=== PATIENT | female | born 1970 | race Caucasian/White ===

== ENCOUNTER → 2017-01-09 | Outpatient (CLI) | payer BC ==
--- NOTE | 2017-01-12 09:16 | MM ---
Reason for exam: screening (asymptomatic). Last mammogram was performed 1 year ago. History: Patient had first child at age 37. Physical Findings: A clinical breast exam by your physician is recommended on an annual basis and results should be correlated with mammographic findings. MG 3D Screening Mammo W/Cad Bilateral CC and MLO view(s) were taken. Prior study comparison: January 25, 2016, left breast MG 3d diag mammo w/cad LT. July 20, 2015, left breast MG work up mamm w CAD LT. The breast tissue is heterogeneously dense. This may lower the sensitivity of mammography. Benign calcifications. There is no discrete abnormality. No significant changes when compared with prior studies. ASSESSMENT: Benign, BI-RAD 2 RECOMMENDATION: Routine screening mammogram of both breasts in 1 year.
== END | disposition home or self-care (01) ==
LOC: RADMAMWWP 09:22
PROVIDERS: ATTEND Obstetrics & Gynecology
DX: Z12.31 Encounter for screening mammogram for malignant neoplasm of breast (principal)
CPT/HCPCS: 77063; G0202

== ENCOUNTER → 2018-03-11 | Outpatient (CLI) | payer BC ==
--- NOTE | 2018-03-12 13:37 | MM ---
Reason for exam: screening (asymptomatic). Last mammogram was performed 1 year and 2 months ago. History: Patient had first child at age 37. Physical Findings: A clinical breast exam by your physician is recommended on an annual basis and results should be correlated with mammographic findings. MG 3D Screening Mammo W/Cad Bilateral CC and MLO view(s) were taken. Prior study comparison: January 09, 2017, bilateral MG 3d screening mammo w/cad. January 25, 2016, left breast MG 3d diag mammo w/cad LT. The breast tissue is heterogeneously dense. This may lower the sensitivity of mammography. Finding: There are typically benign diffuse/scattered calcifications in both breasts. No suspicious abnormality on the right breast. Although the left central upper middle depth architectural distortion appear similar to prior, diagnostic exam is recommended given distortion with no prior intervention. ASSESSMENT: Incomplete: need additional imaging evaluation, BI-RAD 0 RECOMMENDATION: Special view mammogram of the left breast. If lesion persists on supplemental views, image directed ultrasound is recommended. [facility] will attempt to contact patient to return for supplemental views and ultrasound if indicated.
== END | disposition home or self-care (01) ==
LOC: RADMAMWWP 15:28
PROVIDERS: ATTEND Obstetrics & Gynecology
DX: Z12.31 Encounter for screening mammogram for malignant neoplasm of breast (principal)
CPT/HCPCS: 77063; 77067

== ENCOUNTER → 2018-03-23 | Outpatient (CLI) | payer BC ==
--- NOTE | 2018-03-24 10:45 | MM ---
Reason for exam: additional evaluation requested from abnormal screening. Last mammogram was performed less than 1 month ago. History: Patient had first child at age 37. Physical Findings: Nurse did not find any significant physical abnormalities on exam. MG 3D Work Up W/Cad LT CC, spot compression MLO, and LM view(s) were taken of the left breast. Prior study comparison: March 11, 2018, bilateral MG 3d screening mammo w/cad. January 09, 2017, bilateral MG 3d screening mammo w/cad. There is a focal distortion best seen on 3D 11-12 o'clock left breast middle posterior position. This finding is changed when compared with previous exams. These results were verbally communicated with the patient and result sheet given to the patient on 03/23/18. ASSESSMENT: Incomplete: need additional imaging evaluation, BI-RAD 0 RECOMMENDATION: Ultrasound of the left breast. (11 o'clock middle posterior position)
--- NOTE | 2018-03-24 10:47 | USB ---
Reason for exam: additional evaluation requested from abnormal screening. History: Patient had first child at age 37. US Breast Workup Limited LT Left limited breast ultrasound including focal area of concern, retroareolar and axilla demonstrates a 0.4 x 0.3 x 0.4cm cystic lesion at 10 o'clock, a 0.7 x 0.3 x 0.6cm cystic lesion at 10 o'clock, a 1.3 x 0.9 x 0.6cm hypoechoic with shadowing, taller than wide lesion at 12 o'clock and duct ectasia at the posterior nipple. These results were verbally communicated with the patient and result sheet given to the patient on 03/23/18. ASSESSMENT: Highly suggestive of malignancy, BI-RAD 5 RECOMMENDATION: Surgical consultation and ultrasound core biopsy of the left breast. Called Dr. Jamil with mammographic findings and has scheduled an appointment for the patient for 04/28/18 at 4:[address] Reid. Biopsy scheduled for 04/02/18 at 11:30. PRELIMINARY REPORT CALLED AND FAXED TO DR. REID ON 03/24/18.
== END | disposition home or self-care (01) ==
LOC: RADMAMWWP 13:36
PROVIDERS: ATTEND Obstetrics & Gynecology
DX: R92.8 Other abnormal and inconclusive findings on diagnostic imaging of breast (principal)
CPT/HCPCS: 77061; 77065

== ENCOUNTER → 2018-04-02 | Day surgery (SDC) | payer BC ==
[2018-04-02 11:11] VITALS: RESP 16; BMI 36.8
--- NOTE | 2018-04-02 12:35 | USB ---
EXAMINATION TYPE: US biopsy breast VAD LT, MG diagnostic mammo LT wo CAD DATE OF EXAM: 04/02/2018 CLINICAL HISTORY: R92.8 ABN MAMMO. Abnormal ultrasound TECHNIQUE: Ultrasound guided core biopsy of left breast with clip placement and follow-up diagnostic two-view mammogram. COMPARISON: Prior left breast ultrasound and mammogram March 23, 2018 FINDINGS: The procedure of ultrasound guided core biopsy was explained to the patient. Benefits, alternatives, and risks were discussed. An informed consent was then obtained. The patient was placed in supine positioning for imaging and for the procedure. Preprocedure ultrasound redemonstrates vague hypoechoic shadowing area 12:00 position left breast. The overlying skin was prepped and draped in usual sterile fashion. Lidocaine buffered with bicarbonate was used as anesthetic into the skin and subcutaneous tissue. Lidocaine with epinephrine is used as anesthetic into the deeper tissue at area of concern in the left breast. A malena was made with surgical scalpel. Under ultrasound guidance, a 12-gauge vacuum assisted biopsy gun device was used to obtain 3 core samples. Following this, a biopsy clip was left in lesion. The patient tolerated the procedure well without any immediate complication. The patient was kept in the radiology department for short stay after the procedure and then discharged home in stable condition. Postprocedure mammogram shows successful deployment of clip without obvious corresponding mammogram abnormality. Dense tissue is noted at this level similar prior. IMPRESSION: Successful, uncomplicated ultrasound guided core biopsy of area of concern in the left breast, full pathology results to follow. Intermediate index of suspicion noted at time of procedure. Pathology Results: Benign BREAST, LEFT, ULTRASOUND GUIDED CORE BIOPSY: Fibrocystic changes including cysts , fibrosis, and sclerosing adenosis. Recommendation Follow up mammogram and ultrasound of the left breast in 6 months. IDALMIS
[2018-04-02 12:39] VITALS: BP 127/77; PULSE 76; TEMP 98.1
== END | disposition home or self-care (01) ==
LOC: RADUSWWP 10:24
PROVIDERS: ATTEND Surgery
DX: N60.22 Fibroadenosis of left breast (principal); N60.32 Fibrosclerosis of left breast; N60.02 Solitary cyst of left breast
CPT/HCPCS: 88305; 77065; 19083; A4648; J2001

== ENCOUNTER → 2018-10-04 | Outpatient (CLI) | payer BC ==
--- NOTE | 2018-10-04 12:17 | MM ---
Reason for exam: follow-up at short interval from prior study. Last mammogram was performed 6 months ago. History: Patient had first child at age 37. Benign US biopsy breast VAD LT of the left breast, April 02, 2018. Physical Findings: Nurse did not find any significant physical abnormalities on exam. MG 3D Diag Mammo W/Cad LT CC, MLO, spot compression MLO, spot compression CC, and ML with magnification view(s) were taken of the left breast. Prior study comparison: April 02, 2018, left breast MG diagnostic mammo LT wo CAD. March 23, 2018, left breast MG 3d work up w/cad LT. The breast tissue is heterogeneously dense. This may lower the sensitivity of mammography. 12 o'clock biopsy marker seen. Distortion definitively on CC 45/80, equivocally in MLO 56/104. Suspicious with no sonographic correlate. These results were verbally communicated with the patient and result sheet given to the patient on 10/04/18. ASSESSMENT: Suspicious, BI-RAD 4 RECOMMENDATION: Breast MRI and ultrasound core biopsy of the left breast. MRI prebiopsy is recommended to evaluate 12 o'clock and CC distortion.
--- NOTE | 2018-10-04 12:19 | USB ---
Reason for exam: follow-up at short interval from prior study. History: Patient had first child at age 37. Benign US biopsy breast VAD LT of the left breast, April 02, 2018. US Breast LT Left complete breast ultrasound includes all four quadrants, the retroareolar region and axilla. Finding demonstrates duct ectasia at 4 o'clock, a 0.5 x 0.6 x 0.4cm oval, cystic lesion at 10 o'clock and 12 o'clock shadowing, taller than wide remains, re-biopsy recommended. These results were verbally communicated with the patient and result sheet given to the patient on 10/04/18. ASSESSMENT: Suspicious, BI-RAD 4 RECOMMENDATION: Ultrasound core biopsy of the left breast. MRI prebiopsy is recommended to evaluate 12 o'clock and CC distortion.
== END | disposition home or self-care (01) ==
LOC: RADMAMWWP 09:19
PROVIDERS: ATTEND Surgery
DX: R92.8 Other abnormal and inconclusive findings on diagnostic imaging of breast (principal)
CPT/HCPCS: 77061; 77065

== ENCOUNTER → 2018-10-22 | Outpatient (CLI) | payer BC ==
--- NOTE | 2018-10-25 07:44 | BMR ---
EXAMINATION TYPE: MR breast BILAT wo/w con DATE OF EXAM: 10/22/2018 COMPARISON: 3-D bilateral breast mammogram March 11, 2018 BI-RADS 0. Left breast diagnostic mammogram M 2017 BI-RADS 0. Diagnostic left breast ultrasound March 23, 2018 BI-RADS 5 with follow-up benign biopsy. Diagnostic left breast mammogram October 04, 2018 BI-RADS 4. Diagnostic left breast ultrasou nd October 04, 2018 BI-RADS 4. HISTORY: Abnormal mammogram, history of benign left breast biopsy April 02, 2018. CONTRAST: Multiplanar, multisequence images of the breasts were acquired utilizing 9 mL intravenous Gadavist ga dolinium contrast. TECHNIQUE: A series of fat and water weighted images in the long and short axis views of both breasts are obtained in conjunction with dynamic contrast MRI with subtraction technique. Three-dimensional and additional postprocessing imaging is created on independent workstation and reviewed during offi cial interpretation of this study. FINDINGS: Heterogeneously dense fibroglandular tissue is redemonstrated bilaterally. T2-weighted imag es show prominent dilated ducts subareolar region of the left breast. There are scattered tiny puncta te thin-walled cysts throughout both breasts. Delayed dynamic postcontrast images show no suspicious intramammary adenopathy. There is marked bilateral background enhancement making evaluation slightly suboptimal. With regards to the right breast some scattered foci of enhancement in glandular tissue is present co uld reflect adenomyosis. No pathologic enhancement is identified. No suspicious skin thickening is se en. There are benign-appearing right axillary lymph nodes. The chest wall is intact. With regards to the left breast there is artifact from biopsy clip towards 12:00 position. Subtle dis tortion just posterior to this corresponds to mammograms without obvious suspicious enhancing spicula roque mass. Foci of enhancement in the glandular tissue similar to opposite right breast are noted favo ring adenosis. No suspicious skin thickening is seen. The chest wall is intact. There are benign-appe aring left axillary lymph node seen similar to opposite right breast. IMPRESSION: No MRI evidence for invasive malignancy in either breast. BI-RADS 2 benign findings right breast BI-RADS 2 benign findings left breast Recommendation: Repeat ultrasound guided core biopsy left breast due to mammogram and ultrasound abno rmality to ensure no malignancy is present.
== END | disposition home or self-care (01) ==
LOC: RADMRIMAIN 12:25
PROVIDERS: ATTEND Surgery
DX: R92.8 Other abnormal and inconclusive findings on diagnostic imaging of breast (principal)
CPT/HCPCS: 77059; 0159T; A9585

== ENCOUNTER → 2018-11-09 | Day surgery (SDC) | payer BC ==
[2018-11-09 11:44] VITALS: RESP 16; BMI 83.2
[2018-11-09 13:51] VITALS: BP 123/77; PULSE 84; TEMP 98.2
--- NOTE | 2018-11-09 16:14 | USB ---
EXAMINATION TYPE: US biopsy breast VAD LT, Postbiopsy MG diagnostic mammo LT wo CAD DATE OF EXAM: 11/09/2018 CLINICAL HISTORY: 48-year-old female R92.8 Abnormal Mammogram. Patient with prior benign left breast biopsy with persistent suspicious ultrasound appearance. Recent benign breast MRI. Referred for repea t biopsy as a precautionary measure of the ultrasound finding. TECHNIQUE: Ultrasound guided core biopsy of the 12:00 left breast. COMPARISON: 10/04/2018 and MRI 10/22/2018 FINDINGS: The procedure of ultrasound guided core biopsy was explained to the patient. Benefits, alt ernatives, and risks were discussed. An informed consent was then obtained. The patient has very angular and shadowing breast tissue. 12:00 biopsy clip is subtly apparent. An ad jacent area of more pronounced angular shadowing in the 12:00 region is targeted for biopsy. The patient was placed in supine positioning for imaging and for the procedure. The overlying skin w as prepped and draped in usual sterile fashion. Lidocaine buffered with bicarbonate was used as anes thetic into the skin and subcutaneous tissue up to area of concern in the 12:00 left breast. Under ultrasound guidance, a 13-gauge vacuum-assisted mammotome Elite biopsy gun device was used to o btain 8 core samples. Following this, a coil clip was left in lesion. The patient tolerated the procedure well without any immediate complication. The patient was kept in the radiology department for short stay after the procedure and then discharged home in stable condi tion. Post procedure mammogram shows the 12:00 coil and adjacent ribbon clips. Ribbon clip from biopsy 6 mo nths ago. IMPRESSION: Successful, uncomplicated ultrasound guided rebiopsy of area of concern in the left breast, full path ology results to follow. Note that pathology results from 6 months ago were benign and MRI findings o n 10/22/2018 were also benign. Suspect that this represents angular, shadowing breast tissue. Repeat biopsy is performed today as a precautionary measure given the ultrasound appearance.
== END | disposition home or self-care (01) ==
LOC: RADUSWWP 11:24
PROVIDERS: ATTEND Surgery
DX: N60.32 Fibrosclerosis of left breast (principal); N60.22 Fibroadenosis of left breast; N60.02 Solitary cyst of left breast
CPT/HCPCS: 88305; 77065; 19083; A4648; J2001

== ENCOUNTER → 2019-05-25 | Outpatient (CLI) | payer BC ==
--- NOTE | 2019-05-25 09:11 | MM ---
Reason for exam: follow-up at short interval from prior study. Last mammogram was performed 7 months ago. History: Patient had first child at age 37. Benign US biopsy breast VAD LT of the left breast, November 09, 2018. Benign US biopsy breast VAD LT of the left breast, April 02, 2018. Physical Findings: Nurse did not find any significant physical abnormalities on exam. MG 3D Diag Mammo W/Cad LT CC, MLO, LM, CC with magnification, and LM with magnification view(s) were taken of the left breast. Prior study comparison: November 09, 2018, left breast MG diagnostic mammo LT wo CAD. October 04, 2018, left breast MG 3d diag mammo w/cad LT. The breast tissue is heterogeneously dense. This may lower the sensitivity of mammography. Finding: There are typically benign round, linear, regional and diffuse/scattered calcifications in the left breast. Previous mammotome biopsy in the left breast x 2. There is no discrete abnormality. These results were verbally communicated with the patient and result sheet given to the patient on 05/25/19. ASSESSMENT: Benign, BI-RAD 2 RECOMMENDATION: Follow-up diagnostic mammogram of both breasts in 5 months. Back on schedule for November 2019.
== END | disposition home or self-care (01) ==
LOC: RADMAMWWP 07:41
PROVIDERS: ATTEND Surgery
DX: R92.8 Other abnormal and inconclusive findings on diagnostic imaging of breast (principal)
CPT/HCPCS: 77061; 77065

== ENCOUNTER → 2019-09-22 | Outpatient (CLI) | payer BC ==
--- NOTE | 2019-09-22 21:16 | CONS ---
CONSULTATION DATE OF SERVICE: 09/16/2019 49-year-old lady who has been evaluated in [facility] for possible obstructive sleep apnea-hypopnea syndrome and for significant excessive daytime sleepiness. HISTORY OF PRESENT ILLNESS/SLEEP-WAKE EVALUATION: SLEEP SCHEDULE: Patient's usual sleep schedule on weekdays from 10:30 to 11 p.m. until 6 a.m., on weekends from around 9 or 10 pm until 10 - 11 am. FALLING ASLEEP: Usually no problems with falling asleep. No TV in bedroom. DURING SLEEP: Sleeps usually of the side position or in different positions. According to her , she snores. She grinding her teeth. Using oral appliances to prevent grinding. She sometimes wake up from sleep with episodes of gasping for air totally. She wakes up from sleep up to 3 times with up to 2 episodes of nocturia. DURING THE DAY/SLEEP WAKE EVALUATION: In the morning she wakes up tired, has difficulties paying attention, falling asleep during the day, has problems with memory, concentration, episodes of anxiety. [place] Sleepiness Scale increased to 14. PAST MEDICAL HISTORY: Positive for hypertension, anxiety, sinus problems. PAST SURGICAL HISTORY: Appendectomy, surgery on the sinuses. MEDICATIONS: Lexapro, Singulair, hydrochlorothiazide. FAMILY HISTORY: Hypertension, heart problems, hyperlipidemia and arthritis. REVIEW OF SYSTEMS: Awakenings from sleep. Sleepiness during the day. Patient takes one nap around 1 or 3 pm, sometimes usually feels refreshed after that. No vivid dreams during nap. No hypnagogic hallucinations, sleep paralysis or cataplexy. PHYSICAL EXAM: lady without distress. BP 146/66, HR 89, RR 16 height 5 feet 5 inches 3/4, weight 205 pounds. Body mass index 39.1, temperature 97.9. Oxygen saturation at room air 97% oropharynx extremely low soft palate, Mallampati 3-4 restriction of nasal breathing. Neck: 14-3/4 inches in circumference. NECK: Supple, no JVD. Thyroid is not palpable. LUNGS: Clear to percussion and to auscultation. Good air exchange. No wheezing or rhonchi. HEART: S1, S2 regular. No murmurs, gallops, or rubs. ABDOMEN: Obese. Soft and nontender. Bowel sounds are present. No organomegaly appreciated. EXTREMITIES: No clubbing or cyanosis. INDOOR PLANT TECHNICIAN: Awake, alert, and oriented X3. Cranial nerves 2 to 7 intact. There is no fasciculation or atrophy. noted. No focal deficits observed. IMPRESSION: 1. Snoring, awakenings from sleep gasping for air, low position of soft palate, restriction of nasal breathing; obstructive sleep apnea-hypopnea syndrome. 2. Excessive daytime sleepiness. [place] Sleepiness Scale increased to 14-15. The patient takes naps. Differential diagnosis should include hypersomnia if evaluation for sleep apnea will be negative. 3. Hypertension. 4. Anxiety. 5. History of sinus problem, restriction of nasal breathing. 6. Status post sinus surgery. 7. Status post appendectomy. PLAN: 1. Home sleep apnea test for evaluation of patient's breathing during sleep. 2. CPAP/BiPAP titration if sleep study confirms obstructive sleep apnea-hypopnea syndrome. 3. Preferable position during sleep on the side. 4. No driving if patient feels any sleepiness. 5. I will see patient for follow up visit to explain results of testing and following plan. 6. Multiple sleep latency test if the sleep study will be negative for obstructive sleep apnea-hypopnea syndrome. Thank you very much for referring this patient for consultation. Sincerely, Travis Vasquez MD, PhD, FAASM Diplomat of [employer] [employer] [employer] H[employer] Administrative Assistant of [facility] [place] JACKLYN / ANA: [id number] /
== END | disposition home or self-care (01) ==
LOC: SLEEP 15:07
PROVIDERS: ATTEND Internal Medicine
DX: G47.33 Obstructive sleep apnea (adult) (pediatric) (principal); I10 Essential (primary) hypertension; F41.9 Anxiety disorder, unspecified; Z87.39 Personal history of other diseases of the musculoskeletal system and connective tissue; Z90.49 Acquired absence of other specified parts of digestive tract; Z98.890 Other specified postprocedural states; Z79.899 Other long term (current) drug therapy
CPT/HCPCS: 99211

== ENCOUNTER → 2019-11-28 | Outpatient (CLI) | payer BC ==
--- NOTE | 2019-11-28 12:14 | MM ---
Reason for exam: follow-up at short interval from prior study. Last mammogram was performed 6 months ago. History: Patient had first child at age 37. Benign US biopsy breast VAD LT of the left breast, November 09, 2018. Benign US biopsy breast VAD LT of the left breast, April 02, 2018. Took hormonal contraceptives for 5 years. Physical Findings: Nurse did not find any significant physical abnormalities on exam. MG 3D Diag Mammo W/Cad JOSE ELIAS Bilateral CC and MLO view(s) were taken. ML, spot compression CC, and spot compression MLO view(s) were taken of the left breast. Prior study comparison: May 25, 2019, left breast MG 3d diag mammo w/cad LT. November 09, 2018, left breast MG diagnostic mammo LT wo CAD. The breast tissue is heterogeneously dense. This may lower the sensitivity of mammography. Benign appearing bilateral calcifications. Left upper inner quadrant distortion is seen at middle depth, seen on prior exams and previously work up. No ultrasound of MRI correlate. On spot compression views this persists on CC 39/65 and MLO 47/80. These results were verbally communicated with the patient and result sheet given to the patient on 11/28/19. ASSESSMENT: Suspicious, BI-RAD 4 RECOMMENDATION: Stereotactic core biopsy of the left breast. (3D) Called Dr. Reid's office with mammographic findings. PRELIMINARY REPORT CALLED AND FAXED TO DR. REID ON 11/28/19.
== END | disposition home or self-care (01) ==
LOC: LAB 10:55
PROVIDERS: ATTEND Surgery
DX: R92.8 Other abnormal and inconclusive findings on diagnostic imaging of breast (principal)
CPT/HCPCS: 77062; 77066

== ENCOUNTER → 2020-06-14 | Outpatient (CLI) | payer BC ==
--- NOTE | 2020-06-14 17:22 | SFUN ---
SLEEP CENTER FOLLOW UP NOTE DATE OF SERVICE: 06/14/2020 A 50-year-old lady who has been followed in the Sleep Center for treatment of obstructive sleep apnea-hypopnea syndrome. Patient underwent home sleep apnea test and I discussed results of home sleep apnea test with the patient in details. Subsequently, the patient received her AutoPAP unit and today is her first visit after she started to use her AutoPAP. Patient is able to use show her AutoPAP most of nights and she feels better while she is using her CPAP equipment. She sleeps better and she feels more energy in the morning. Before treatment, her [place] Sleepiness Scale was 14, today her [place] Sleepiness Scale is 10. I checked her CPAP unit, it is on automatic regimen in the range of the pressure 5-15 cm of water. Average pressure 10.6 cm of water. Usage is 18/30 nights and 14/30 nights for more than 4 hours with average usage 4.8 hours per night, Leak is 2 L/minute which is minimal. Apnea-hypopnea index reading 3.4, which is in normal range. MEDICATIONS: Lexapro, Singulair, hydrochlorothiazide. PHYSICAL EXAM: lady without distress, BP 139/84, HR 89, RR 16, weight 216.4 pounds which is 11 pounds more than during first visit. OROPHARYNX: Low position of soft palate, Mallampati 3-4. Some restriction of nasal breathing. ABDOMEN: Obese. NECK: Supple, no JVD. Thyroid is not palpable. LUNGS: Clear to percussion and to auscultation. Good air exchange. No wheezing or rhonchi. HEART: S1, S2 regular. No murmurs, gallops, or rubs. EXTREMITIES: No clubbing or cyanosis. COPIER AND PRINTER FIELD TECHNICIAN: Awake, alert, and oriented X3. Cranial nerves 2 to 7 intact. There is no fasciculation or atrophy. noted. No focal deficits observed. IMPRESSION: 1. Obstructive sleep apnea-hypopnea syndrome. The patient started to use CPAP equipment and benefitting from treatment. 2. Significant excessive daytime sleepiness before starting treatment with CPAP. [place] Sleepiness Scale improved to borderline level 10. 3. Hypertension. 4. Anxiety. 5. History of sinus problems with restriction of nasal breathing. 6. Status post sinus surgery. 7. Status post appendectomy. PLAN: 1. Patient will continue to use PAP equipment every night for the whole night. 2. Sleep hygiene with regular time in bed for at least 7-1/2 to 8 hours. 3. Precautions related to driving. No driving if feeling sleepiness. 4. I will maintain all necessary prescription for PAP supplies including mask, tube, filters. 5. Watching weight. 6. No driving if feeling sleepiness. 7. Follow-up visit in 6 months or earlier if patient has any problems. 8. I discussed necessity to use CPAP equipment every night for the whole night. The patient promised to follow recommendations. Time spent with patient 25 minutes. Thank you very much for allowing me to participate in the management of patient. Sincerely, Travis Vasquez MD, PhD, FAASM Diplomat of [employer] [place] [employer] Specialties [employer] [place] [employer] of [employer] Medicine [employer] [facility] [place] JACKLYN / ANA: [phone] /
== END | disposition home or self-care (01) ==
LOC: SLEEP 15:43
PROVIDERS: ATTEND Internal Medicine
DX: G47.33 Obstructive sleep apnea (adult) (pediatric) (principal); I10 Essential (primary) hypertension; F41.9 Anxiety disorder, unspecified; Z87.09 Personal history of other diseases of the respiratory system; Z99.89 Dependence on other enabling machines and devices; Z90.49 Acquired absence of other specified parts of digestive tract; Z98.890 Other specified postprocedural states; Z79.899 Other long term (current) drug therapy

== ENCOUNTER → 2020-09-10 | Outpatient (CLI) | payer BC | END | disposition home or self-care (01) | LOC: LABWHC1 15:45 | PROVIDERS: ATTEND Family Medicine | DX: Z20.828 Contact with and (suspected) exposure to other viral communicable diseases (principal) | CPT/HCPCS: U0003; C9803 ==

== ENCOUNTER → 2020-11-21 | Outpatient (CLI) | payer BC ==
--- NOTE | 2020-11-26 08:37 | MM ---
Reason for exam: screening (asymptomatic). Last mammogram was performed 6 months ago. History: Patient had first child at age 37. Benign stereotactic core biopsy of the left breast, December 2019. Benign US biopsy breast VAD LT of the left breast, November 09, 2018. Benign US biopsy breast VAD LT of the left breast, April 02, 2018. Took hormonal contraceptives for 5 years. Physical Findings: A clinical breast exam by your physician is recommended on an annual basis and results should be correlated with mammographic findings. MG 3D Screening Mammo W/Cad Bilateral CC and MLO view(s) were taken. Prior study comparison: May 29, 2020, left breast MG 3d diag mammo w/cad LT. November 28, 2019, bilateral MG 3d diag mammo w/cad JOSE ELIAS. The breast tissue is extremely dense which could obscure a lesion on mammography. Finding: There are stable, fine, round, diffuse/scattered calcifications in both breasts. Previous mammotome biopsy in the left breast. No significant changes in finding since May 29, 2020 and November 28, 2019. ASSESSMENT: Benign, BI-RAD 2 RECOMMENDATION: Routine screening mammogram of both breasts in 1 year.
== END | disposition home or self-care (01) ==
LOC: RADMAMWWP 10:01
PROVIDERS: ATTEND Surgery
DX: Z12.31 Encounter for screening mammogram for malignant neoplasm of breast (principal)
CPT/HCPCS: 77063; 77067

== ENCOUNTER → 2020-12-27 | Outpatient (CLI) | payer BC ==
--- NOTE | 2020-12-27 23:34 | SFUN ---
SLEEP CENTER FOLLOW UP NOTE DATE OF SERVICE: 12/27/2020 This patient is a 50-year-old lady who has been followed in Sleep Center for treatment of obstructive sleep apnea-hypopnea syndrome. The patient is continuing to use her CPAP equipment every night but still feels significantly sleepy during the day. [place] Sleepiness Scale today is 12. She looks sleepy and fell asleep in the exam room before I came to see her. I checked her CPAP unit. It is an automatic regimen with a pressure of 5 to 15, average pressure 10.2 cm of water. Usage is 30/30 nights, and 25/30 nights for more than 4 hours. Leak is 0 L/minute. Apnea-hypopnea index is 2.7, which is normal. MEDICATIONS: 1. Singulair 10 mg once a day. 2. Lexapro 20 mg once a day. 3. Hydrochlorothiazide once a day. 4. Flonase on p.r.n. basis. PHYSICAL EXAMINATION: GENERAL: A pleasant patient in no distress. VITAL SIGNS: BP 129/73, HR 92, RR 12, height 5 feet 1 inch, weight 211.2, BMI 39.8, temperature 97.4, oxygen saturation at room air 97%. HEENT: PERRLA, EOMI. Evaluation of oropharynx showed tongue protrudes midline. Low position of soft palate. Mallampati III to IV. NECK: Supple. No JVD. Thyroid is not palpable. LUNGS: Clear to percussion and to auscultation. Good air exchange. No wheezing or rhonchi. HEART: S1, S2 regular. No murmurs, gallops or rubs. ABDOMEN: Obese. EXTREMITIES: No clubbing or cyanosis. BLACK TOP RAKER: Awake, alert, and oriented X3. Cranial nerves 2 to 7 intact. There is no fasciculation or atrophy. noted. No focal deficits observed. IMPRESSION: 1. Obstructive sleep apnea-hypopnea syndrome. Patient demonstrated great compliance with treatment, benefitting from treatment. 2. The patient continues to have symptoms of excessive daytime sleepiness. [place] Sleepiness Scale increased to 12, falling asleep during the day. Differential diagnosis should include additional diagnosis of narcolepsy or hypersomnia. 3. Obesity. 4. Hypertension. 5. Anxiety. 6. History of sinus problems with restriction of nasal breathing. 7. Status post sinus surgery. 8. Status post appendectomy. PLAN: 1. Night on the CPAP with following multiple sleep latency test for objective evaluation of patient's symptoms of excessive daytime sleepiness and to check for any sleep-onset REM periods. 2. Continue to use CPAP equipment every night for the whole night. 3. Losing weight. 4. Sleep hygiene with regular time in bed for 8 hours. 5. No driving if feeling any sleepiness. 6. Follow-up visit after MSLT to discuss results and plan of the treatment. Thank you very much for allowing me to participate in the management of your patient. Sincerely, Travis Vasquez MD, PhD, FAASM Diplomat of [employer] Software Engineer Developer of [facility] [place] MMODL / ANGELN: [id number] /
== END | disposition home or self-care (01) ==
LOC: SLEEP 15:08
PROVIDERS: ATTEND Internal Medicine
DX: G47.33 Obstructive sleep apnea (adult) (pediatric) (principal); E66.9 Obesity, unspecified; I10 Essential (primary) hypertension; F41.9 Anxiety disorder, unspecified; Z87.09 Personal history of other diseases of the respiratory system; Z98.890 Other specified postprocedural states; Z99.89 Dependence on other enabling machines and devices

== ENCOUNTER → 2021-03-13 | Outpatient (CLI) | payer BC ==
--- NOTE | 2021-03-13 23:00 | SFUN ---
SLEEP CENTER FOLLOW UP NOTE DATE OF SERVICE: 03/13/2021 51-year-old lady has been followed in Sleep Center for treatment of obstructive sleep apnea-hypopnea syndrome and sleepiness. One month ago, she said test with CPAP with the following multiple sleep latency test for objective evaluation to sleepiness during the day. During titration, her respiration was on full control. On the following day on 5 naps, patient fell asleep on all naps. Mean sleep latency was 14.9 minutes, which is in normal range. No sleep onset REM periods have been documented, which is against idiopathic hypersomnia and narcolepsy. At the same time, patient continues to use her CPAP equipment every night but still feels sleepy during the day. Continue to take naps. [place] Sleepiness Scale today is 10. I discussed results of sleep studies with patient in detail. I checked her CPAP unit. Range of the pressure 5-15 cm of water. Average pressure is 10.7 cm of water, usage 26/30 nights and 20/30 nights for more than 4 hours with average usage 5.1 hours per night. Leak 0 L/minute. Apnea-hypopnea index 2.5. MEDICATIONS: Singulair 10 mg once a day. Lexapro 20 mg once a day. Hydrochlorothiazide once a day. Flonase on p.r.n. basis. BMI is 39.8. PHYSICAL EXAMINATION: GENERAL: Patient in no distress. BP 159/84, HR 88, RR 16, height 5 feet 1 inch, weight 210.2, temperature 97.6, oxygen saturation at room air 96%. Oropharynx extremely low position of soft palate. Mallampati IV. NECK: Supple, no JVD. Thyroid is not palpable. LUNGS: Clear to percussion and to auscultation. Good air exchange. No wheezing or rhonchi. HEART: S1, S2 regular. No murmurs, gallops, or rubs. ABDOMEN: Obese. Soft and nontender. Bowel sounds are present. No organomegaly appreciated. EXTREMITIES: No clubbing or cyanosis. CLEANING TEAM MEMBER: Awake, alert, and oriented X3. Cranial nerves 2 to 7 intact. There is no fasciculation or atrophy. noted. No focal deficits observed. I spent with patient more than 30 minutes. IMPRESSION: 1. Obstructive sleep apnea-hypopnea syndrome. The patient demonstrated good compliance with treatment, benefitting from treatment. 2. Patient continued experiencing tiredness, sleepiness during the day. Taking naps. 3. Hypertension. 4. Anxiety. 5. History of sinus problems. 6. Status post sinus surgery. 7. Status post appendectomy. PLAN: 1. The patient will be started on modafinil 200 mg p.o. q.a.m. to prevent sleepiness which could be related to obstructive sleep apnea-hypopnea syndrome. 2. Patient will continue to use PAP equipment every night for the whole night. 3. Sleep hygiene with regular time in bed for at least 7-1/2 to 8 hours. 4. Precautions related to driving. No driving if feeling sleepiness. 5. I will maintain all necessary prescription for PAP supplies including mask, tube, filters. 6. Watching weight. 7. Follow-up visit in 6 months or earlier if patient has any problems. Thank you very much for allowing me to participate in management of your patient. Sincerely, Travis Vasquez MD, PhD, FAASM Diplomat of [employer] Scale Agent of [facility] [place] MMODL / ANGELN: [id number] /
== END ==
LOC: SLEEP 13:59
PROVIDERS: ATTEND Internal Medicine
DX: G47.33 Obstructive sleep apnea (adult) (pediatric) (principal); I10 Essential (primary) hypertension; F41.9 Anxiety disorder, unspecified; Z90.49 Acquired absence of other specified parts of digestive tract; Z87.09 Personal history of other diseases of the respiratory system; Z98.890 Other specified postprocedural states; Z79.899 Other long term (current) drug therapy

== ENCOUNTER → 2021-05-22 | Outpatient (CLI) | payer BC ==
--- NOTE | 2021-05-22 12:51 | XR ---
EXAMINATION TYPE: XR lumbar spine 2 or 3V DATE OF EXAM: 05/22/2021 CLINICAL HISTORY: pain TECHNIQUE: Three views of the lumbar spine are submitted. COMPARISON: None. FINDINGS: There are 5 lumbar type vertebral bodies identified. The lumbar spine shows satisfactory alignment w ithout evidence of acute fracture or dislocation. Vertebral body heights are within normal limits. Mild degenerative disc space narrowing and spondylosis. The overlying soft tissue appears unremarkab le. IMPRESSION: No acute fracture or dislocation is seen in the lumbar spine. ICD 10 NO FRACTURE, INITIAL EVALUATION
--- NOTE | 2021-05-22 13:01 | XR ---
EXAMINATION TYPE: XR cervical spine limited DATE OF EXAM: 05/22/2021 CLINICAL HISTORY: pain TECHNIQUE: 3 views of the cervical spine are submitted. COMPARISON: None. FINDINGS: There is satisfactory in alignment without evidence of acute fracture or dislocation. The pre-vertebral soft tissue appears within normal limits. Moderate degenerative disc space narrowing a nd spondylosis at C5-6 and C6-7. The C1-C2 articulation is unremarkable on the open mouth view. IMPRESSION: No acute fracture or dislocation is seen in the cervical spine.
== END | disposition home or self-care (01) ==
LOC: RADXRMAIN 11:21
PROVIDERS: ATTEND Family Medicine
DX: M54.5 Low back pain (principal); M54.2 Cervicalgia
CPT/HCPCS: 72040; 72100

== ENCOUNTER 2021-08-12 08:03 | Emergency (ER) | payer BC ==
[2021-08-12] MEDS ORDERED: SODIUM CHLORIDE 0.9% 1,000 ML IV STA (08:29)
--- NOTE | 2021-08-12 08:56 | ED ---
General Adult HPI - General Chief complaint: Urogenital Stated complaint: abd pain & blood in urine Time Seen by Provider: 08/12/21 08:18 Source: patient, RN notes reviewed Mode of arrival: ambulatory Limitations: no limitations - History of Present Illness Initial comments: This is a 51-year-old female presents emergency Department chief complaint abdo kobi pain, dysuria, hematuria. Patient states symptoms started over the weekend seemed to improve yesterday but states it worsens a not she has bilateral flank pain. No reported fevers chills denies any significant nausea vomiting diarrhea constipation. Patient states the blood has dissipated now she states initially started as pinkish color to bright red. She has no history kidney stones no prior urinary tract infections. She does admit that she's had a uterine ablation and appendectomy. - Related Data Home Medications Medication Instructions Recorded Confirmed Escitalopram [Lexapro] 20 mg PO HS 03/24/18 08/12/21 Montelukast [Singulair] 10 mg PO HS 03/24/18 08/12/21 Ibuprofen [Motrin Ib] 400 - 800 mg PO Q8H PRN 08/12/21 08/12/21 Lisinopril-Hctz 10-12.5 mg 1 tab PO DAILY 08/12/21 08/12/21 [Zestoretic 10-12.5] Methenamine/Sodium Salicylate [Azo 2 tab PO TID 08/12/21 08/12/21 Urinary Tract Defense Tab] modafiniL [Provigil] 200 mg PO DAILY 08/12/21 08/12/21 Previous Rx's Medication Instructions Recorded Cephalexin [Keflex] 500 mg PO Q8HR #21 cap 08/12/21 Allergies Allergy/AdvReac Type Severity Reaction Status Date / Time prednisone AdvReac Rapid Verified 08/12/21 08:58 Heart Rate Review of Systems ROS Statement: Those systems with pertinent positive or pertinent negative responses have been documented in the HPI. ROS Other: All systems not noted in ROS Statement are negative. Past Medical History Past Medical History: Hypertension History of Any Multi-Drug Resistant Organisms: None Reported Past Surgical History: Appendectomy Additional Past Surgical History / Comment(s): sinus surgery-2010 Past Anesthesia/Blood Transfusion Reactions: No Reported Reaction Past Psychological History: Anxiety, Depression Smoking Status: Never smoker Past Alcohol Use History: Rare Past Drug Use History: None Reported - Past Family History Father Additional Family Medical History / Comment(s): at 49-bilateral pneumonia Mother Family Medical History: Dementia, Diabetes Mellitus, Hyperlipidemia, Hypertension Additional Family Medical History / Comment(s): glaucoma General Exam Limitations: no limitations General appearance: alert, in no apparent distress Head exam: Present: atraumatic, normocephalic, normal inspection Neck exam: Present: normal inspection. Absent: tenderness, meningismus, lymphadenopathy Respiratory exam: Present: normal lung sounds bilaterally. Absent: respiratory distress, wheezes, rales, rhonchi, stridor Cardiovascular Exam: Present: regular rate (Heart rate was 82 on exam), normal rhythm, normal heart sounds. Absent: systolic murmur, diastolic murmur, rubs, gallop, clicks GI/Abdominal exam: Present: soft, tenderness (Normal suprapubic), normal bowel sounds. Absent: distended, guarding, rebound, rigid Back exam: Absent: CVA tenderness (R), CVA tenderness (L) Neurological exam: Present: alert, oriented X3, CN II-XII intact Skin exam: Present: warm, dry, intact, normal color. Absent: rash Course Vital Signs 08/12/21 08/12/21 08:13 09:29 Temperature 99.3 F Pulse Rate 102 H 100 Respiratory 18 16 Rate Blood Pressure 153/70 144/92 O2 Sat by Pulse 98 98 Oximetry Medical Decision Making - Medical Decision Making 51-year-old female presented for hematuria, abdominal discomfort. Patient been having hemorrhagic urinary tract infection. Patient discharged on oral antibiotics after receiving 2 g Rocephin. There is no evidence kidney stone return parameters were discussed. - Lab Data Result diagrams: 08/12/21 09:08 08/12/21 09:08 Lab Results 08/12/21 08/12/21 08/12/21 Range/Units 09:08 09:08 09:08 WBC 10.0 (3.8-10.6) k/uL RBC 4.40 (3.80-5.40) m/uL Hgb 13.9 (11.4-16.0) gm/dL Hct 41.3 (34.0-46.0) % MCV 93.8 (80.0-100.0) fL MCH 31.6 (25.0-35.0) pg MCHC 33.7 (31.0-37.0) g/dL RDW 12.1 (11.5-15.5) % Plt Count 206 (150-450) k/uL MPV 8.2 Neutrophils % 80 % Lymphocytes % 13 % Monocytes % 4 % Eosinophils % 1 % Basophils % 0 % Neutrophils # 8.1 H (1.3-7.7) k/uL Lymphocytes # 1.3 (1.0-4.8) k/uL Monocytes # 0.4 (0-1.0) k/uL Eosinophils # 0.1 (0-0.7) k/uL Basophils # 0.0 (0-0.2) k/uL Sodium 135 L (137-145) mmol/L Potassium 3.8 (3.5-5.1) mmol/L Chloride 102 (98-107) mmol/L Carbon Dioxide 24 (22-30) mmol/L Anion Gap 9 mmol/L BUN 8 (7-17) mg/dL Creatinine 0.48 L (0.52-1.04) mg/dL Est GFR (CKD-EPI)AfAm >90 (>60 ml/min/1.73 sqM) Est GFR (CKD-EPI)NonAf >90 (>60 ml/min/1.73 sqM) Glucose 129 H (74-99) mg/dL Plasma Lactic Acid Nitesh (0.7-2.0) mmol/L Calcium 9.5 (8.4-10.2) mg/dL Total Bilirubin 0.4 (0.2-1.3) mg/dL AST 44 H (14-36) U/L ALT 36 H (4-34) U/L Alkaline Phosphatase 110 (38-126) U/L Total Protein 7.0 (6.3-8.2) g/dL Albumin 4.0 (3.5-5.0) g/dL Amylase 57 (30-110) U/L Lipase 58 (23-300) U/L Urine Color Yellow Urine Appearance Cloudy H (Clear) Urine pH 6.5 (5.0-8.0) Ur Specific [place] 1.016 (1.001-1.035) Urine Protein 1+ H (Negative) Urine Glucose (UA) Negative (Negative) Urine Ketones Negative (Negative) Urine Blood Large H (Negative) Urine Nitrite Positive H (Negative) Urine Bilirubin Negative (Negative) Urine Urobilinogen <2.0 (<2.0) mg/dL Ur Leukocyte Esterase Large H (Negative) Urine RBC 128 H (0-5) /hpf Urine WBC >182 H (0-5) /hpf Urine WBC Clumps Many H (None) /hpf Urine Bacteria Moderate H (None) /hpf Urine Mucus Occasional H (None) /hpf 08/12/21 Range/Units 09:08 WBC (3.8-10.6) k/uL RBC (3.80-5.40) m/uL Hgb (11.4-16.0) gm/dL Hct (34.0-46.0) % MCV (80.0-100.0) fL MCH (25.0-35.0) pg MCHC (31.0-37.0) g/dL RDW (11.5-15.5) % Plt Count (150-450) k/uL MPV Neutrophils % % Lymphocytes % % Monocytes % % Eosinophils % % Basophils % % Neutrophils # (1.3-7.7) k/uL Lymphocytes # (1.0-4.8) k/uL Monocytes # (0-1.0) k/uL Eosinophils # (0-0.7) k/uL Basophils # (0-0.2) k/uL Sodium (137-145) mmol/L Potassium (3.5-5.1) mmol/L Chloride (98-107) mmol/L Carbon Dioxide (22-30) mmol/L Anion Gap mmol/L BUN (7-17) mg/dL Creatinine (0.52-1.04) mg/dL Est GFR (CKD-EPI)AfAm (>60 ml/min/1.73 sqM) Est GFR (CKD-EPI)NonAf (>60 ml/min/1.73 sqM) Glucose (74-99) mg/dL Plasma Lactic Acid Nitesh 1.4 (0.7-2.0) mmol/L Calcium (8.4-10.2) mg/dL Total Bilirubin (0.2-1.3) mg/dL AST (14-36) U/L ALT (4-34) U/L Alkaline Phosphatase (38-126) U/L Total Protein (6.3-8.2) g/dL Albumin (3.5-5.0) g/dL Amylase (30-110) U/L Lipase (23-300) U/L Urine Color Urine Appearance (Clear) Urine pH (5.0-8.0) Ur Specific [place] (1.001-1.035) Urine Protein (Negative) Urine Glucose (UA) (Negative) Urine Ketones (Negative) Urine Blood (Negative) Urine Nitrite (Negative) Urine Bilirubin (Negative) Urine Urobilinogen (<2.0) mg/dL Ur Leukocyte Esterase (Negative) Urine RBC (0-5) /hpf Urine WBC (0-5) /hpf Urine WBC Clumps (None) /hpf Urine Bacteria (None) /hpf Urine Mucus (None) /hpf Disposition Clinical Impression: Urinary tract infection Disposition: HOME SELF-CARE Condition: Stable Instructions (If sedation given, give patient instructions): Urinary Tract Infection in Women (ED) Additional Instructions: Please return to the Emergency Department if symptoms worsen or any other c oncerns. Prescriptions: Cephalexin [Keflex] 500 mg PO Q8HR #21 cap Is patient prescribed a controlled substance at d/c from ED?: No Referrals: Raf Mcdowell DO [Primary Care Provider] - 1-2 days Time of Disposition: 10:33
[2021-08-12 09:22] LABS: Basophils % (A) 0 %; Eosinophils # (A) 0.1 k/uL (0-0.7); Eosinophils % (A) 1 %; HCT 41.3 % (34.0-46.0); HGB 13.9 gm/dL (11.4-16.0); Lymphocytes # (A) 1.3 k/uL (1.0-4.8); Lymphocytes % (A) 13 %; MCH 31.6 pg (25.0-35.0); MCHC 33.7 g/dL (31.0-37.0); MCV 93.8 fL (80.0-100.0); Mean Platelet Volume 8.2; Monocytes # (A) 0.4 k/uL (0-1.0); Monocytes % (A) 4 %; Neutrophils # (A) 8.1 k/uL (1.3-7.7); Neutrophils % (A) 80 %; Platelet Count 206 k/uL (150-450); RDW 12.1 % (11.5-15.5)
[2021-08-12 09:29] VITALS: RESP 16
[2021-08-12] MEDS ORDERED: KETOROLAC 15 MG/ML 1 ML VIAL IVP STA (09:31)
[2021-08-12 09:32] LABS: Appearance,Urine Cloudy (Clear); Bacteria,Urine Moderate /hpf; Bilirubin,Urine Negative (Negative); Blood,Urine Large (Negative); Color,Urine Yellow; Glucose,Urine (UA) Negative (Negative); Ketones,Urine Negative (Negative); Leukocyte Esterase,Urine Large (Negative); Mucus,Urine Occasional /hpf; Nitrite,Urine Positive (Negative); PH, Urine 6.5 (5.0-8.0); Protein,Urine 1+ (Negative); RBC,Urine 128 /hpf (0-5); Specific Gravity,Urine 1.016 (1.001-1.035); Urobilinogen,Urine <2.0 mg/dL (<2.0); WBC,Urine >182 /hpf (0-5)
[2021-08-12 09:54] LABS: ALT 36 U/L (4-34); AST 44 U/L (14-36); African American GFR (CKD) >90 (>60 ml/min/1.73 sqM); Alkaline Phosphatase 110 U/L (38-126); Amylase 57 U/L (30-110); Anion Gap 9 mmol/L; Blood Urea Nitrogen 8 mg/dL (7-17); Calcium 9.5 mg/dL (8.4-10.2); Carbon Dioxide 24 mmol/L (22-30); Chloride 102 mmol/L (98-107); Glucose 129 mg/dL (74-99); Lipase 58 U/L (23-300); Non-African American GFR(CKD) >90 (>60 ml/min/1.73 sqM); Potassium 3.8 mmol/L (3.5-5.1); Sodium 135 mmol/L (137-145); Total Bilirubin 0.4 mg/dL (0.2-1.3)
--- NOTE | 2021-08-12 10:29 | CT ---
EXAMINATION TYPE: CT abdomen pelvis wo con DATE OF EXAM: 08/12/2021 COMPARISON: 03/25/2010 INDICATION: RLQ and right sided flank pain with hematuria. DLP: 1084.4 mGycm, Automated exposure control for dose reduction was used. CONTRAST: 0 mL of Isovue 300. Study performed without Oral Contrast TECHNIQUE: Axial images were obtained from above the diaphragm to the pubic rami in the axial plane a t 5 mm thick sections. Reconstructed images are reviewed on the computer in the coronal plane. FINDINGS: Limited CT sections are obtained the lung bases. The lung bases are clear. CT ABDOMEN: Liver: Normal Spleen: Normal Pancreas: Normal Adrenal glands: The adrenal glands are normal. Gallbladder: Normal Kidneys: No masses are evident. No hydronephrosis is present. No cysts are present. No renal stone s are identified. Aorta: Normal Inferior vena cava: Normal. CT PELVIS: Loops of bowel within the abdomen and pelvis are normal. Studies without oral contrast limiting b owel evaluation. Appendix: Normal as visualized. No suspicious inflammatory changes are evident. Urinary bladder: Normal. Genitourinary structures: Uterus is normal. Adnexal regions are clear. Osseous structures: No suspicious lytic or sclerotic lesions. IMPRESSIONS: 1. No suspicious abnormality right lower quadrant.
[2021-08-12 11:02] VITALS: BP 157/82; PULSE 102; TEMP 97.8
== END 2021-08-12 11:00 | disposition home or self-care (01) ==
LOC: EC 08:03
DX: N39.0 Urinary tract infection, site not specified (principal); I10 Essential (primary) hypertension; F32.9 Major depressive disorder, single episode, unspecified; F41.9 Anxiety disorder, unspecified; Z79.899 Other long term (current) drug therapy; Z79.1 Long term (current) use of non-steroidal anti-inflammatories (NSAID); Z88.8 Allergy status to other drugs, medicaments and biological substances; Z90.49 Acquired absence of other specified parts of digestive tract; Z83.49 Family history of other endocrine, nutritional and metabolic diseases; Z83.3 Family history of diabetes mellitus; Z82.49 Family history of ischemic heart disease and other diseases of the circulatory system
CPT/HCPCS: 36415; 80053; 82150; 83605; 83690; 85025; 81001; 87086; 74176; 99284; 96365; 96375; 96361; J0696; J1885; 87077; 87186

== ENCOUNTER → 2021-12-06 | Outpatient (CLI) | payer BC ==
--- NOTE | 2021-12-09 09:48 | MM ---
Reason for exam: screening (asymptomatic). Last mammogram was performed 1 year ago. History: Patient had first child at age 37. Benign stereotactic core biopsy of the left breast, December 2019. Benign US biopsy breast VAD LT of the left breast, November 09, 2018. Benign US biopsy breast VAD LT of the left breast, April 02, 2018. Took hormonal contraceptives for 5 years. Physical Findings: A clinical breast exam by your physician is recommended on an annual basis and results should be correlated with mammographic findings. MG 3D Screening Mammo W/Cad Bilateral CC and MLO view(s) were taken. Prior study comparison: November 21, 2020, bilateral MG 3d screening mammo w/cad. May 29, 2020, left breast MG 3d diag mammo w/cad LT. The breast tissue is heterogeneously dense. This may lower the sensitivity of mammography. Stable benign calcifications. There is no discrete abnormality. No significant changes when compared with prior studies. ASSESSMENT: Benign, BI-RAD 2 RECOMMENDATION: Routine screening mammogram of both breasts in 1 year.
== END | disposition home or self-care (01) ==
LOC: RADMAMWWP 07:58
PROVIDERS: ATTEND Obstetrics & Gynecology
DX: Z12.31 Encounter for screening mammogram for malignant neoplasm of breast (principal)
CPT/HCPCS: 77063; 77067

== ENCOUNTER → 2022-11-04 | Outpatient (CLI) | payer BC ==
[2022-11-04 14:33] LABS: Basophils # (A) 0.02 X 10*3/uL (0.00-0.10); Basophils % (A) 0.3 %; Eosinophils # (A) 0.09 X 10*3/uL (0.04-0.35); Eosinophils % (A) 1.5 %; HCT 40.2 % (37.2-46.3); HGB 13.5 g/dL (12.0-15.0); Immature Grans, Automated 0.3 %; Lymphocytes # (A) 2.35 X 10*3/uL (0.90-5.00); Lymphocytes % (A) 40.2 %; MCH 30.8 pg (27.0-32.0); MCHC 33.6 g/dL (32.0-37.0); MCV 91.8 fL (80.0-97.0); Mean Platelet Volume 10.2 fL (9.5-12.2); Monocytes # (A) 0.47 X 10*3/uL (0.20-1.00); NRBC Per 100 WBC 0 /100 WBCS (0.0-0.0); Neutrophils # (A) 2.89 X 10*3/uL (1.80-7.70); Neutrophils % (A) 49.7 %; Platelet Count 231 X 10*3/uL (140-440); RBC 4.38 X 10*6/uL (4.10-5.20); RDW 12.2 % (11.5-14.5); WBC 5.84 X 10*3/uL (4.50-10.00)
[2022-11-04 14:53] LABS: ALT 26 U/L (8-44); AST 27 U/L (13-35); African American GFR (CKD) 119.7 (60.0-200.0); Albumin 4.5 g/dL (3.8-4.9); Albumin/Globulin Ratio 1.54 (1.60-3.17); Alkaline Phosphatase 95 U/L (41-126); BUN/Creat Ratio 17.78 Ratio (12.00-20.00); Blood Urea Nitrogen 11.4 mg/dL (9.0-27.0); Calcium 9.8 mg/dL (8.7-10.3); Carbon Dioxide 27.9 mmol/L (20.0-27.5); Chloride 101 mmol/L (96-109); Chol/HDL Ratio 5.47 Ratio; Globulin 2.9 g/dL (1.6-3.3); Glucose 106 mg/dL (70-110); LDL Cholesterol,Calculated 182.4 mg/dL (0.0-131.0); Non-African American GFR(CKD) 103.3 (60.0-200.0); Potassium 4.5 mmol/L (3.5-5.5); Sodium 137 mmol/L (135-145); Total Protein 7.5 g/dL (6.2-8.2)
== END | disposition home or self-care (01) ==
LOC: LABWHC1 10:32
PROVIDERS: ATTEND Nurse Practitioner Family
DX: Z00.00 Encounter for general adult medical examination without abnormal findings (principal); I10 Essential (primary) hypertension
CPT/HCPCS: 36415; 80053; 80061; 84439; 84443; 85025

== ENCOUNTER → 2023-02-05 | Outpatient (CLI) | payer BC ==
--- NOTE | 2023-02-05 15:55 | P.PN ---
Subjective DATE: 02/05/2023 FOLLOW UP VISIT. Patient with obstructive sleep apnea hypopnea syndrome return to sleep center for follow-up visit. Information from previous visit have been reviewed. Patient is using PAP equipment every night for the whole night, getting PAP supplies in time. The patient does not have significant problems with the mask, PAP unit and humidification. [place] sleepiness scale is 6, which is normal. I checked information from PAP unit. PAP unit pressure 5-15, average 9.8 cm H2O. Usage is 73 % of nights average 3.8 hours per night. Leak is 0.5 l/m, which is in acceptable range. Apnea Hypopnea Index is 1.8, which is normal. MEDICATIONS:1. Singulair 10 mg once a day 2. Lexapro 20 mg once a day 3. Lisinopril/hydrochlorothiazide 10-12.5 mg once a day During physical exam: GENERAL: A pleasant patient without any distress. VITAL SIGNS: BP 132/77, HR 99, RR 16, weight 213.2, temperature 97.6, oxygen saturation at room air 96 % . HEENT: PERRLA, EOMI.low position of soft palate, Mallapati 4 . NECK: Supple. No JVD. LUNGS: Clear to percussion and to auscultation. Good air exchange. No wheezing or rhonchi. HEART: S1, S2 regular. ABDOMEN: Soft and nontender. Obese EXTREMITIES: No clubbing or cyanosis. BARREL RIFLER BROACH: Awake, alert, and oriented x3. No focal deficit. Impressions: 1. Obstructive sleep apnea-hypopnea syndrome. Patient demonstrated slightly low compliance with treatment, benefiting from treatment. 2. Obesity, BMI 40.2, patient increased to wait on 3 pounds comparing with previous visit. 3. Hypertension. 4. History of anxiety. 5. History of sinuses problems. 6. Status post sinus surgery. 7. Status post appendectomy. Plan: 1. Continue using PAP equipment every night for the whole night. I decreased maximal pressure in CPAP unit to 12 cm of water. 2. To change air filter at least 1-2 times per month. 3. PAP unit should stay lower then position of the head. 4. Advised patient to remove all remaining water from humidifier canister daily and make it dry after each usage. Refill canister with fresh distilled water before each usage. 5. Sleep hygiene with regular time in bed for at least 8 hours. 6. Precautions related to driving. No driving if feel any sleepiness. 7. I will maintain prescription for PAP supplies including mask, tube, filters. 8. Watching and losing weight. 9. Follow up visit in 6 months or earlier if patient has any problems. Thank you very much for allowing me to participate in the management of your patient. Travis Vasquez MD, PhD, FAASM. Diplomat of [place] [employer], Sleep Medicine Board by [employer] [facility] [place]
== END ==
LOC: SLEEP 15:18
PROVIDERS: ATTEND Internal Medicine
DX: G47.33 Obstructive sleep apnea (adult) (pediatric) (principal); E66.9 Obesity, unspecified; F41.9 Anxiety disorder, unspecified; I10 Essential (primary) hypertension; Z68.41 Body mass index [BMI] 40.0-44.9, adult; Z79.899 Other long term (current) drug therapy; Z90.49 Acquired absence of other specified parts of digestive tract; Z99.89 Dependence on other enabling machines and devices; Z98.890 Other specified postprocedural states; Z88.8 Allergy status to other drugs, medicaments and biological substances; Z87.09 Personal history of other diseases of the respiratory system
CPT/HCPCS: 99212

== ENCOUNTER → 2023-10-29 | Outpatient (CLI) | payer BC ==
[2023-10-29 15:10] LABS: Basophils # (A) 0.02 X 10*3/uL (0.00-0.10); Basophils % (A) 0.4 %; Eosinophils # (A) 0.09 X 10*3/uL (0.04-0.35); Eosinophils % (A) 1.7 %; HCT 39.5 % (37.2-46.3); HGB 13.3 g/dL (12.0-15.0); Lymphocytes # (A) 2.06 X 10*3/uL (0.90-5.00); Lymphocytes % (A) 38.4 %; MCH 30.6 pg (27.0-32.0); MCHC 33.7 g/dL (32.0-37.0); Mean Platelet Volume 10.4 FL (9.5-12.2); Monocytes # (A) 0.34 X 10*3/uL (0.20-1.00); Monocytes % (A) 6.3 %; NRBC Per 100 WBC 0 X 10*3/uL (0.00-0.01); Neutrophils # (A) 2.84 X 10*3/uL (1.80-7.70); Neutrophils % (A) 52.8 %; Platelet Count 225 X 10*3/uL (140-440); RBC 4.34 X 10*6/uL (4.10-5.20); WBC 5.37 X 10*3/uL (4.50-10.00)
[2023-10-29 15:28] LABS: ALT 19 U/L (8-44); AST 25 U/L (13-35); Albumin 4.2 g/dL (3.8-4.9); Albumin/Globulin Ratio 1.56 Ratio (1.60-3.17); Alkaline Phosphatase 86 U/L (41-126); BUN/Creat Ratio 14.17 Ratio (12.00-20.00); Blood Urea Nitrogen 8.5 mg/dL (9.0-27.0); Calcium 9.8 mg/dL (8.7-10.3); Carbon Dioxide 24.2 mmol/L (21.6-31.8); Chloride 103 mmol/L (96-109); Chol/HDL Ratio 5.34 Ratio; Globulin 2.7 g/dL (1.6-3.3); Glucose 99 mg/dL (70-110); LDL Cholesterol,Calculated 164.3 mg/dL (0.0-131.0); Potassium 4.4 mmol/L (3.5-5.5); Sodium 140 mmol/L (135-145); T4, Free (Free Thyroxine) 0.91 ng/dL (0.80-1.80); Total Bilirubin 0.3 mg/dL (0.3-1.2); Total Protein 6.9 g/dL (6.2-8.2)
[2023-10-29 15:34] LABS: Follicle Stimulating Hormone 36.8 mIU/mL; Luteinizing Hormone 32.6 mIU/mL
== END | disposition home or self-care (01) ==
LOC: LABWHC1 10:25
PROVIDERS: ATTEND Family Medicine
DX: Z00.01 Encounter for general adult medical examination with abnormal findings (principal); Z13.9 Encounter for screening, unspecified; R73.03 Prediabetes
CPT/HCPCS: 36415; 80053; 80061; 82672; 83001; 83002; 83036; 84439; 84443; 85025

== ENCOUNTER → 2023-11-04 | Outpatient (CLI) | payer BC | END | disposition home or self-care (01) | LOC: LABWHC1 12:51 | PROVIDERS: ATTEND Nurse Practitioner Family | DX: Z13.9 Encounter for screening, unspecified (principal) | CPT/HCPCS: 36415; 82672 ==

== ENCOUNTER → 2024-03-02 | Outpatient (CLI) | payer BC ==
--- NOTE | 2024-03-03 18:10 | MM ---
Reason for Exam: Screening (asymptomatic). Last mammogram was performed 1 year(s) and 3 month(s) ago. Patient History: Menarche at age 12. First Full-Term at age 37. Late child-bearing (after 30). Patient has history of breast feeding. Patient used Hormonal Contraceptives for 5 years. 12/2019, Benign Stereotactic Core Biopsy on the left side. 11/09/2018, Benign Core Biopsy on the left side. 04/02/2018, Benign Core Biopsy on the left side. Risk Values: Nila 5 year model risk: 2.5%. NCI Lifetime model risk: 18.3%. Prior Study Comparison: 11/21/2020 Bilateral Screening Mammogram, [facility]. 12/06/2021 Bilateral Screening Mammogram, [facility]. 12/08/2022 Bilateral MG 3D screening mammo w/cad, [facility]. Tissue Density: The breasts are heterogeneously dense, which may obscure small masses. Findings: Analyzed By CAD. The pattern is symmetrical. There is some distortion within the mid craniocaudal projection left breast which appears to be a change. Additional prior biopsies been performed more anterior within the left breast. No suspicious groups of microcalcifications, spiculated or lobular masses, architectural distortion or other secondary signs of malignancy are mammographically apparent. Overall Assessment: Incomplete: need additional imaging evaluation, BI-RAD 0 Management: Diagnostic Mammogram of the left breast. A negative mammogram report should not preclude additional follow up of suspicious palpable abnormalities. Patient should continue monthly self breast exam. A clinical breast exam by your physician is recommended on an annual basis and results should be correlated with mammographic findings. Note on Nila scores and lifetime risk: 1. A Nila score greater than 3% is considered moderate risk. If this is the case, consider specialist referral to assess eligibility for a risk reducing agent. 2. If overall lifetime risk for the development of breast cancer is 20% or higher, the patient may qualify for future screening with alternating mammogram and breast MRI. Electronically signed and approved by: Harjeet Sheehan D.O. Radiologis
== END | disposition home or self-care (01) ==
LOC: RADMAMWWP 15:29
PROVIDERS: ATTEND Family Medicine
DX: Z12.31 Encounter for screening mammogram for malignant neoplasm of breast (principal)
CPT/HCPCS: 77063; 77067

== ENCOUNTER → 2024-03-08 | Outpatient (CLI) | payer BC ==
--- NOTE | 2024-03-08 15:34 | MM ---
Reason for Exam: Additional evaluation requested from abnormal screening. Last screening mammogram was performed less than 1 month ago. Patient History: Menarche at age 12. First Full-Term at age 37. Late child-bearing (after 31). Patient has history of breast feeding. Patient used Hormonal Contraceptives for 5 years. 12/2019, Benign Stereotactic Core Biopsy on the left side. 11/09/2018, Benign Core Biopsy on the left side. 04/02/2018, Benign Core Biopsy on the left side. Risk Values: Nila 5 year model risk: 2.5%. NCI Lifetime model risk: 18.3%. Prior Study Comparison: 12/06/2021 Bilateral Screening Mammogram, [facility]. 12/08/2022 Bilateral MG 3D screening mammo w/cad, [facility]. 03/02/2024 Bilateral MG 3D screening mammo w/cad, [facility]. Tissue Density: Left: The breasts are heterogeneously dense, which may obscure small masses. Findings: Analyzed By CAD. The questioned distortion central left CC view becomes less pronounced on 3-D view. The appearance is similar to prior exams. Possibly relating to prior excisional scar. No significant change from prior exams. 2 microclips related to prior biopsies. Overall Assessment: Benign, BI-RAD 2 Management: Screening Mammogram of both breasts in 1 year. . Results were given to the patient verbally at the time of exam. Patient should continue monthly self-breast exams. A clinical breast exam by your physician is recommended on an annual basis. This exam should not preclude additional follow-up of suspicious palpable abnormalities. Note on Nila scores and lifetime risk: 1. A Nila score greater than 3% is considered moderate risk. If this is the case, consider specialist referral to assess eligibility for a risk reducing agent. 2. If overall lifetime risk for the development of breast cancer is 20% or higher, the patient may qualify for future screening with alternating mammogram and breast MRI. Electronically signed and approved by: Cora Fuchs M.D. Radiologist
== END | disposition home or self-care (01) ==
LOC: RADMAMWWP 14:51
PROVIDERS: ATTEND Family Medicine
DX: R92.8 Other abnormal and inconclusive findings on diagnostic imaging of breast (principal); R92.332 Mammographic heterogeneous density, left breast
CPT/HCPCS: 77061; 77065